=== PATIENT | female | born 1955 | race Caucasian/White ===

== ENCOUNTER 2019-02-24 08:39 | Emergency (ER) | payer BC ==
[2019-02-24] MEDS ORDERED: cefTRIAXone IN SWFI 1,000 MG/10 ML SYRINGE IVP STA ×2 (09:13→12:41)
[2019-02-24 09:50] LABS: Basophils % (A) 1 %; Eosinophils # (A) 0.1 k/uL (0-0.7); Eosinophils % (A) 2 %; HCT 38.7 % (34.0-46.0); HGB 12.9 gm/dL (11.4-16.0); Lymphocytes # (A) 0.9 k/uL (1.0-4.8); Lymphocytes % (A) 16 %; MCH 31.6 pg (25.0-35.0); MCHC 33.4 g/dL (31.0-37.0); MCV 94.6 fL (80.0-100.0); Mean Platelet Volume 7.7; Monocytes # (A) 0.3 k/uL (0-1.0); Monocytes % (A) 6 %; Neutrophils # (A) 3.9 k/uL (1.3-7.7); Neutrophils % (A) 73 %; Platelet Count 146 k/uL (150-450); RDW 13.3 % (11.5-15.5); WBC 5.3 k/uL (3.8-10.6)
[2019-02-24] MEDS ORDERED: HYDROcodone/APAP 5-325MG 1 EACH TAB PO STA (09:50)
[2019-02-24] MEDS ORDERED: KETOROLAC 30 MG/ML 1 ML VIAL IVP STA (09:50)
--- NOTE | 2019-02-24 09:51 | ED ---
General Adult HPI - General Chief complaint: Dental/Oral Stated complaint: Dental Pain Time Seen by Provider: 02/24/19 08:57 Source: patient, RN notes reviewed, old records reviewed Mode of arrival: ambulatory Limitations: no limitations - History of Present Illness Initial comments: Patient is a 63-year-old female presents emergency Department today with complaints of left-sided sinus pain and left dental pain. She was seen by her water pipe installer yesterday administered clindamycin. She states she's had a total of 5 doses of the antibiotic but the redness is continued to spread and worsened. Patient states that she is scheduled to have her bridge removed on her upper eyetooth on Tuesday. They did x-rays and reported that there was evidence of infection. Patient is concerned that the antibiotic is not working appropriately. - Related Data Previous Rx's Medication Instructions Recorded HYDROcodone/APAP 5-325MG [[facility] 1 tab PO Q6HR PRN #10 tab 02/24/19 5-325] Allergies Allergy/AdvReac Type Severity Reaction Status Date / Time ampicillin [From Polycillin] Allergy Rash/Hives Verified 02/24/19 08:46 Sulfa (Sulfonamide Allergy Rash/Hives Verified 02/24/19 08:46 Antibiotics) Review of Systems ROS Statement: Those systems with pertinent positive or pertinent negative responses have been documented in the HPI. ROS Other: All systems not noted in ROS Statement are negative. Past Medical History Past Medical History: Hyperlipidemia, Hypertension History of Any Multi-Drug Resistant Organisms: None Reported Past Surgical History: Hysterectomy, Pacemaker Past Psychological History: No Psychological Hx Reported Smoking Status: Never smoker Past Alcohol Use History: Daily, Occasional Past Drug Use History: None Reported General Exam - General Exam Comments Initial Comments: 63-year-old female. Alert and oriented 3. Patient appears in no significant distress. Limitations: no limitations General appearance: alert, in no apparent distress Head exam: Present: atraumatic, normocephalic, normal inspection Eye exam: Present: normal appearance, PERRL, EOMI, periorbital swelling (Right eye periorbital swelling. Some erythema surrounding the right eyelid. Extra ocular eye movements are intact. No proptosis.). Absent: scleral icterus, conjunctival injection ENT exam: Present: normal exam, mucous membranes moist, other (Patient has significant right maxillary sinus tenderness with surrounding erythema over the maxillary sinus.) Neck exam: Present: normal inspection. Absent: tenderness, meningismus, lymphadenopathy Respiratory exam: Present: normal lung sounds bilaterally. Absent: respiratory distress, wheezes, rales, rhonchi, stridor Cardiovascular Exam: Present: regular rate, normal rhythm, normal heart sounds. Absent: systolic murmur, diastolic murmur, rubs, gallop, clicks GI/Abdominal exam: Present: soft, normal bowel sounds. Absent: distended, tenderness, guarding, rebound, rigid Extremities exam: Present: normal inspection, full ROM, normal capillary refill. Absent: tenderness, pedal edema, joint swelling, calf tenderness Back exam: Present: normal inspection Neurological exam: Present: alert, oriented X3, CN II-XII intact Psychiatric exam: Present: normal affect, normal mood Skin exam: Present: warm, dry, intact, normal color. Absent: rash Course Vital Signs 02/24/19 02/24/19 02/24/19 08:41 11:00 11:10 Temperature 97.9 F Pulse Rate 67 69 Respiratory 18 16 16 Rate Blood Pressure 153/76 167/77 O2 Sat by Pulse 95 99 Oximetry Medical Decision Making - Lab Data Result diagrams: 02/24/19 09:28 02/24/19 09:28 Lab Results 02/24/19 02/24/19 Range/Units 09:28 09:28 WBC 5.3 (3.8-10.6) k/uL RBC 4.10 (3.80-5.40) m/uL Hgb 12.9 (11.4-16.0) gm/dL Hct 38.7 (34.0-46.0) % MCV 94.6 (80.0-100.0) fL MCH 31.6 (25.0-35.0) pg MCHC 33.4 (31.0-37.0) g/dL RDW 13.3 (11.5-15.5) % Plt Count 146 L (150-450) k/uL Neutrophils % 73 % Lymphocytes % 16 % Monocytes % 6 % Eosinophils % 2 % Basophils % 1 % Neutrophils # 3.9 (1.3-7.7) k/uL Lymphocytes # 0.9 L (1.0-4.8) k/uL Monocytes # 0.3 (0-1.0) k/uL Eosinophils # 0.1 (0-0.7) k/uL Basophils # 0.0 (0-0.2) k/uL Sodium 133 L (137-145) mmol/L Potassium 5.0 (3.5-5.1) mmol/L Chloride 97 L (98-107) mmol/L Carbon Dioxide 27 (22-30) mmol/L Anion Gap 9 mmol/L BUN 12 (7-17) mg/dL Creatinine 0.59 (0.52-1.04) mg/dL Est GFR (CKD-EPI)AfAm >90 (>60 ml/min/1.73 sqM) Est GFR (CKD-EPI)NonAf >90 (>60 ml/min/1.73 sqM) Glucose 115 H (74-99) mg/dL Calcium 9.7 (8.4-10.2) mg/dL - Radiology Data Radiology results: report reviewed Right-sided facial swelling adjacent to the body of the mandible. 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 On the basis of study difficult to exclude dental abscess. Disposition Clinical Impression: Pain, dental, Sinusitis Disposition: HOME SELF-CARE Condition: Good Instructions (If sedation given, give patient instructions): Toothache (ED) Additional Instructions: Follow-up with primary care doctor and follow up with her dentist. Continue the clindamycin every 6 hours. Use pain medicine as needed in between Motrin and regular Tylenol. Patient should've close follow-up with primary care doctor. If the area of redness and swelling worsens on the eye within the next 48 hours please return for reevaluation. Prescriptions: HYDROcodone/APAP 5-325MG [[facility] 5-325] 1 tab PO Q6HR PRN #10 tab PRN Reason: Pain Is patient prescribed a controlled substance at d/c from ED?: Yes Referrals: Jose Leblanc DO [Primary Care Provider] - 1-2 days Time of Disposition: 12:41
[2019-02-24 10:02] LABS: Anion Gap 9 mmol/L; Blood Urea Nitrogen 12 mg/dL (7-17); Calcium 9.7 mg/dL (8.4-10.2); Carbon Dioxide 27 mmol/L (22-30); Chloride 97 mmol/L (98-107); Glucose 115 mg/dL (74-99); Sodium 133 mmol/L (137-145)
[2019-02-24 11:19] VITALS: RESP 16
--- NOTE | 2019-02-24 12:56 | CT ---
EXAMINATION TYPE: CT facial bones w con DATE OF EXAM: 02/24/2019 COMPARISON: None. HISTORY: Rt facial pain and swelling CT DLP: 879.4 mGycm Automated exposure control for dose reduction was used. CONTRAST: CT scan of the facial bones is performed with IV Contrast, patient injected with 100 mL of Isovue 300 . TECHNIQUE: CT scan of the sinuses is performed without contrast, axial images are obtained, coronal r eformatted images are also reviewed. FINDINGS: There is soft tissue swelling along the body of the mandible on the right. There are adjace nt dental amalgams. These are causing streak artifact. Apical root abscess could not adequately be as sessed. There is mucoperiosteal thickening involving both maxillary sinuses with an air-fluid level in the le ft maxillary sinus. There is also minimal, chronic mucoperiosteal thickening in the ethmoid sinuses. The remainder the paranasal sinuses and mastoids are clear. The zygomatic arches are intact. The pterygoid plates are intact. The orbital lopes in the lopes of t he maxillary sinus sinuses are intact. IMPRESSION: 1. Right-sided facial swelling adjacent to the body of the mandible. 2. 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 3. On the basis of this study it would be difficult to exclude a dental abscess.
[2019-02-24 13:25] VITALS: BP 150/72; PULSE 63; TEMP 99.6
== END 2019-02-24 13:25 | disposition home or self-care (01) ==
LOC: EC 08:39
DX: K08.89 Other specified disorders of teeth and supporting structures (principal); J32.9 Chronic sinusitis, unspecified; Z88.1 Allergy status to other antibiotic agents; Z88.2 Allergy status to sulfonamides; Z95.0 Presence of cardiac pacemaker
CPT/HCPCS: 36415; 80048; 85025; 87040; 70487; 99284; 96374; 96375; 96376; J0696; J1885; Q9967